=== PATIENT | male | born 1935 | race Caucasian/White ===

== ENCOUNTER 2022-03-21 08:51 | Inpatient (IN) ==
[2022-03-21 10:03] LABS: Bilirubin,Urine Negative (Negative); Blood, Urine Moderate mg/dL (Negative); Glucose,Urine (UA) Negative (Negative); Ketones,Urine Negative (Negative); Mucus,Urine Occasional /LPF (Occasional); Nitrite,Urine Negative (Negative); Protein,Urine Negative (Negative); RBC,Urine 40-45 /HPF (0-4); Squamous Epithelial Cell,Urine Occasional /HPF (0-10); Urine Appearance Slightly Hazy (Clear); Urine Color Yellow (Yellow); Urine Specific Gravity 1.027 (1.001-1.035); Urine Urobilinogen < 2.0 eU/dL (<2.0)
[2022-03-21 10:17] LABS: Calcium 8.8 MG/DL (8.5-10.1); Potassium 4.4 MMOL/L (3.5-5.1)
[2022-03-21] MEDS: SODIUM CHLORIDE 0.9% 1,000 ML IV SCH ×2 (11:35→22:43)
[2022-03-21] MEDS ORDERED: DOCUSATE SODIUM 100 MG CAPSULE PO PRN (11:43)
[2022-03-21] MEDS ORDERED: hydrALAZINE 20 MG/1 ML VIAL IV PRN (11:43)
[2022-03-21] MEDS ORDERED: ONDANSETRON 4 MG/2 ML VIAL IV PRN (11:43)
[2022-03-21] MEDS ORDERED: ACETAMINOPHEN 325 MG TABLET PO PRN (11:43)
[2022-03-21] MEDS ORDERED: NITROGLYCERIN SL 0.4 MG TABLET SL PRN (11:46)
[2022-03-21] MEDS ORDERED: HEPARIN 5,000 UNIT/1 ML VIAL SUBCUT SCH (12:00)
[2022-03-21] MEDS: TAMSULOSIN 0.4 MG CAPSULE PO SCH ×2 (12:17→20:38)
[2022-03-21] MEDS: LACTATED RINGERS 1,000 ML IV SCH (12:18)
[2022-03-21] MEDS: ROSUVASTATIN 20 MG TABLET PO SCH (20:38)
[2022-03-21] MEDS: FINASTERIDE 5 MG TABLET PO SCH (20:38)
[2022-03-21] MEDS: CLOPIDOGREL 75 MG TABLET PO SCH (20:38)
[2022-03-21] MEDS: carvediloL 3.125 MG TABLET PO SCH (20:38)
[2022-03-22] MEDS: LACTATED RINGERS 1,000 ML IV SCH ×3 (02:57→21:21)
[2022-03-22 04:59] LABS: Basophils # 0.1 10*3/uL (0.0-0.2); Basophils % 0.5 % (0.0-0.8); Eosinophils # 0.3 10*3/uL (0.0-0.87); Eosinophils % 3.7 % (0.00-10.9); Hematocrit 29.8 VOL% (42.0-52.0); Hemoglobin 10.2 GM/DL (14.0-18.0); Immature Granulocytes % 0.4 %; Immature Granulocytes Absolute 0.04 #; Lymphocytes # 1.9 10*3/uL (1.4-4.0); Lymphocytes % 20.8 % (21.2-54.2); Mean Corpuscular HGB Conc 34.2 GM/DL (32-36); Mean Corpuscular Volume 89.2 FL (87-102); Mean Platelet Volume 10.9 FL (9.6-12.0); Monocytes # 1.2 10*3/uL (0.11-0.8); Monocytes % 13.2 % (1.7-12.7); Neutrophils % 61.4 % (38.7-73.9); Platelet Count 146 T/CUMM (130-400); Red Blood Count 3.34 MC/CUMM (3.8-5.5); Red Cell Distribution Width 13.4 % (9.3-17.3); White Blood Count 9.3 T/CUMM (4-12)
[2022-03-22 05:09] LABS: Calcium 8.5 MG/DL (8.5-10.1); Potassium 3.8 MMOL/L (3.5-5.1)
[2022-03-22] MEDS ORDERED: VITAMIN A 8000 UNIT PO SCH (09:00)
[2022-03-22] MEDS ORDERED: INFLUENZA VIRUS VACCINE 0.5 ML SYRINGE IM ONE (09:00)
[2022-03-22] MEDS: SODIUM CHLORIDE 0.9% 1,000 ML IV SCH (09:12)
[2022-03-22] MEDS: HEPARIN 5,000 UNIT/1 ML VIAL SUBCUT SCH ×2 (09:44→21:21)
[2022-03-22] MEDS: ASPIRIN 325 MG TABLET PO SCH (09:45)
[2022-03-22] MEDS: TAMSULOSIN 0.4 MG CAPSULE PO SCH ×2 (09:45→21:21)
[2022-03-22] MEDS: amLODIPine 10 MG TABLET PO SCH (09:45)
[2022-03-22] MEDS: carvediloL 3.125 MG TABLET PO SCH ×2 (09:45→21:21)
[2022-03-22] MEDS: CHOLECALCIFEROL 5,000 UNIT TABLET PO SCH (09:46)
[2022-03-22] MEDS: PANTOPRAZOLE 40 MG TABLET PO SCH (09:46)
[2022-03-22] MEDS ORDERED: LIDOCAINE 2% TOP JELLY 20 ML VIAL INTRAURETH ONE (14:03)
[2022-03-22] MEDS: ROSUVASTATIN 20 MG TABLET PO SCH (21:20)
[2022-03-22] MEDS: FINASTERIDE 5 MG TABLET PO SCH (21:21)
[2022-03-22] MEDS: CLOPIDOGREL 75 MG TABLET PO SCH (21:21)
[2022-03-23 08:28] VITALS: BP 124/62
[2022-03-23] MEDS: HEPARIN 5,000 UNIT/1 ML VIAL SUBCUT SCH (08:33)
[2022-03-23] MEDS: PANTOPRAZOLE 40 MG TABLET PO SCH (08:33)
[2022-03-23] MEDS: CHOLECALCIFEROL 5,000 UNIT TABLET PO SCH (08:33)
[2022-03-23] MEDS: TAMSULOSIN 0.4 MG CAPSULE PO SCH (08:33)
[2022-03-23] MEDS: carvediloL 3.125 MG TABLET PO SCH (08:33)
[2022-03-23] MEDS: ASPIRIN 325 MG TABLET PO SCH (08:33)
[2022-03-23] MEDS: amLODIPine 10 MG TABLET PO SCH (08:33)
== END 2022-03-23 11:52 | disposition home or self-care (01) | DRG 683 ==
LOC: N.ED 08:51 → N.EDINP 11:43 → SUATTDRO 11:43 → N.5E 15:51
PROVIDERS: ADMIT Internal Medicine; ATTEND Internal Medicine Geriatric Medicine